=== PATIENT | male | born 1930 | race Caucasian/White ===

== ENCOUNTER → 2017-02-27 | Outpatient (CLI) | payer OTHER | END | disposition home or self-care (01) | LOC: NUC 09:55 | DX: M47.897 Other spondylosis, lumbosacral region (principal); M17.12 Unilateral primary osteoarthritis, left knee; M19.072 Primary osteoarthritis, left ankle and foot; M19.071 Primary osteoarthritis, right ankle and foot; R93.7 Abnormal findings on diagnostic imaging of other parts of musculoskeletal system; Z79.899 Other long term (current) drug therapy; R97.21 Rising PSA following treatment for malignant neoplasm of prostate | CPT/HCPCS: 78306; A9503 ==

== ENCOUNTER → 2017-06-27 | Outpatient (CLI) | payer OTHER | END | disposition home or self-care (01) | LOC: NUC 10:44 | DX: R93.7 Abnormal findings on diagnostic imaging of other parts of musculoskeletal system (principal); R93.421 Abnormal radiologic findings on diagnostic imaging of right kidney | CPT/HCPCS: 78306; A9503 ==

== ENCOUNTER → 2017-08-12 | Outpatient (CLI) | payer MEDICARE, OTHER | END | disposition home or self-care (01) | LOC: CDC 14:16 | DX: Z01.810 Encounter for preprocedural cardiovascular examination (principal); N13.30 Unspecified hydronephrosis; I44.0 Atrioventricular block, first degree | CPT/HCPCS: 93000 ==

== ENCOUNTER 2017-09-05 19:43 | Inpatient (IN) | payer OTHER ==
[~2017-09-05] VITALS: Ht 172.7 cm; Wt 113.9 kg
[2017-09-05 20:20] LABS: HEMATOCRIT 29.6 % (38.0-50.0); MCHC 32.4 G/DL (30.0-36.0); MCV 92.5 FL (86-99); MEAN PLAT.VOLUME 11.1 uM^3 (9.0-12.4); PLATELET COUNT 148 K/uL (156-360); RBC DIS.WIDTH-SD 47.7 % (39-53); WHITE BLOOD COUNT 9.4 K/uL (4.1-10.2)
[2017-09-05 20:30] LABS: CHLORIDE 109 mEq/L (99-109); POTASSIUM 4.3 mEq/L (3.7-5.4); SODIUM 140 mEq/L (136-147)
[2017-09-05 20:31] LABS: GLUCOSE 179 mg/dL (70-99)
[2017-09-05 20:33] LABS: ANION GAP 11 MEQ/L (2-14)
[2017-09-05 20:35] LABS: GFR ESTIMATE (CALCULATED) 36 mL/min/
[2017-09-05 20:36] LABS: UREA NITROGEN (BUN) 35 mg/dL (9-23)
[2017-09-05 20:43] LABS: TROP-I INTERPRETATION NEGATIVE; TROPONIN-I 0.03 ng/mL (0.0-0.30)
[2017-09-06] MEDS ORDERED: FLOMAX0.4 MG PO (00:37)
[2017-09-06] MEDS ORDERED: ATORVASTATIN CA10 MG PO (00:38)
[2017-09-06] MEDS ORDERED: NORVASC5 MG PO (00:38)
[2017-09-06] MEDS ORDERED: CRANBERRY500 M2 PO (00:38)
[2017-09-06] MEDS ORDERED: BENAZEPRIL HCL20 MG PO (00:38)
[2017-09-06] MEDS ORDERED: METOPROLOL SUCC50 MG PO (00:38)
[2017-09-06] MEDS ORDERED: LITE COAT ASPI325 M1 PO (00:39)
[2017-09-06] MEDS ORDERED: PROBIOTIC1 EAC1 PO (00:39)
[2017-09-06] MEDS ORDERED: A-CARO-2525000 UNIT PO (00:39)
[2017-09-06] MEDS ORDERED: CO Q-10200 MG PO (00:39)
[2017-09-06] MEDS ORDERED: PROAIR HFA8.5 GM IH (00:39)
[2017-09-06] MEDS ORDERED: ADVAIR 500/501 DISK IH (00:39)
[2017-09-06] MEDS ORDERED: CALCITRIOL0.25 MCG PO (00:39)
[2017-09-06] MEDS ORDERED: GLUCOSAMINE &1 EACH PO (00:40)
[2017-09-06] MEDS ORDERED: SALMON OIL 1,01 EACH PO ×2 (00:40)
[2017-09-06] MEDS ORDERED: GLUCOSAMINE-CH1 EA14 PO (00:40)
[2017-09-06] MEDS ORDERED: FIBER0.4 GM PO (00:40)
[2017-09-06] MEDS ORDERED: SUPER MULTIVIT1 EACH PO (00:40)
[2017-09-06] MEDS ORDERED: VITAMIN B-121000 MC1 PO (00:41)
[2017-09-06] MEDS ORDERED: VITAMIN C1000 MG PO (00:41)
[2017-09-06] MEDS ORDERED: VITAMIN D31000 UNIT PO (00:41)
[2017-09-06] MEDS ORDERED: ALPHA LIPOIC A100 MG PO (00:41)
[2017-09-06] MEDS ORDERED: LYCOPENE10 MG PO (00:41)
[2017-09-06] MEDS ORDERED: CALCIUM 500 MG1 EACH PO ×2 (00:42)
[2017-09-06 04:00] VITALS: BP 148/67
[2017-09-06 05:37] LABS: TROP-I INTERPRETATION NEGATIVE; TROPONIN-I 0.02 ng/mL (0.0-0.30)
[2017-09-06 07:27] VITALS: BP 103/57
[2017-09-06 08:40] LABS: ADD MIUA? YES; BILIRUBIN NEGATIVE; BLOOD LARGE; COLOR YELLOW ((YELLOW)); GLUCOSE (STRIP) NEGATIVE; KETONES NEGATIVE; LEUKOCYTES SMALL; NITRITE NEGATIVE; PROTEIN (STRIP) NEGATIVE; UROBILINOGEN 0.2 MG/DL (0.2-1.0)
[2017-09-06 08:52] LABS: BACTERIA 1+ /HPF; EPITHELIAL CELLS RARE /HPF; MUCUS TRACE /LPF; RED BLOOD CELLS TNTC /HPF (0-5); UCUL ADDED? YES; WHITE BLOOD CELLS 20-30 /HPF (0-5)
[2017-09-06 10:59] VITALS: BP 99/49
[2017-09-06 13:36] LABS: TROP-I INTERPRETATION NEGATIVE; TROPONIN-I 0.02 ng/mL (0.0-0.30)
[2017-09-06 16:00] VITALS: BP 122/66
[2017-09-06 18:55] VITALS: BP 112/57
[2017-09-06 23:06] VITALS: BP 155/73
[2017-09-07 03:14] VITALS: BP 116/62
[2017-09-07 05:27] LABS: HEMATOCRIT 28.8 % (38.0-50.0); MCH 29.6 PG (29.0-34.0); MCHC 31.9 G/DL (30.0-36.0); MCV 92.6 FL (86-99); MEAN PLAT.VOLUME 11.1 uM^3 (9.0-12.4); PLATELET COUNT 155 K/uL (156-360); RBC DIS.WIDTH-CV 14.1 % (11.8-14.6); RBC DIS.WIDTH-SD 48.2 % (39-53); RED BLOOD COUNT 3.11 M/uL (4.00-5.50); WHITE BLOOD COUNT 8.3 K/uL (4.1-10.2)
[2017-09-07 05:53] LABS: ANION GAP 10 MEQ/L (2-14); CHLORIDE 107 MEQ/L (99-109); GFR ESTIMATE (CALCULATED) 36 mL/min/; GLUCOSE 136 mg/dL (70-99); POTASSIUM 4.2 MEQ/L (3.7-5.4); SAMPLE HEMOLYSIS CHECK 0; SAMPLE ICTERIC CHECK 0; SAMPLE LIPEMIA CHECK 0; SODIUM 140 MEQ/L (136-147); UREA NITROGEN (BUN) 33 mg/dL (9-23)
[2017-09-07 09:00] VITALS: BP 110/55
[2017-09-07 12:00] VITALS: BP 133/66
[2017-09-07 17:00] VITALS: BP 146/61
[2017-09-07 19:08] VITALS: BP 149/66
[2017-09-07 23:23] VITALS: BP 118/58
[2017-09-08 04:26] VITALS: BP 134/69
[2017-09-08 05:53] LABS: BASOPHIL COUNT 0.1 K/uL (0-0.1); EOSINOPHIL (%) 5.6 % (0-5); EOSINOPHIL COUNT 0.4 K/uL (0-0.3); HEMATOCRIT 28.2 % (38.0-50.0); IMMATURE GRANULOCYTE (%) 0.3 % (0.0-0.7); INSTRUMENT ABS NEUTROPHIL CT 4.5 K/uL; LYMPHOCYTE COUNT 1.8 K/uL (1.0-2.8); MCH 29.9 PG (29.0-34.0); MCHC 32.6 G/DL (30.0-36.0); MCV 91.6 FL (86-99); MEAN PLAT.VOLUME 11.3 uM^3 (9.0-12.4); MONOCYTE (%) 8.2 % (3-12); MONOCYTE COUNT 0.6 K/uL (0-0.8); NEUTROPHIL (%) 61.1 % (45-76); NEUTROPHIL COUNT 4.5 K/uL (1.8-6.4); PLATELET COUNT 160 K/uL (156-360); RBC DIS.WIDTH-SD 46.9 % (39-53); RED BLOOD COUNT 3.08 M/uL (4.00-5.50); WHITE BLOOD COUNT 7.3 K/uL (4.1-10.2)
[2017-09-08 07:32] LABS: ANION GAP ND MEQ/L (2-14); CHLORIDE 106 MEQ/L (99-109); GLUCOSE 132 mg/dL (70-99); SAMPLE HEMOLYSIS CHECK 0; SAMPLE ICTERIC CHECK 0; SAMPLE LIPEMIA CHECK 0; SODIUM 141 MEQ/L (136-147); UREA NITROGEN (BUN) 36 mg/dL (9-23)
[2017-09-08 07:38] VITALS: BP 146/63
[2017-09-08 07:58] LABS: GFR ESTIMATE (CALCULATED) 36 mL/min/
[2017-09-08 12:19] VITALS: BP 134/65
[2017-09-08 12:37] LABS: ADD MIUA? YES; BILIRUBIN NEGATIVE; BLOOD LARGE; COLOR YELLOW ((YELLOW)); GLUCOSE (STRIP) NEGATIVE; KETONES NEGATIVE; LEUKOCYTES TRACE; NITRITE NEGATIVE; PROTEIN (STRIP) NEGATIVE; SPECIFIC GRAVITY 1.006 (1.000-1.030); UROBILINOGEN 0.2 MG/DL (0.2-1.0)
[2017-09-08 13:15] LABS: BACTERIA RARE /HPF; EPITHELIAL CELLS RARE /HPF; HYALINE CASTS 0-5 /LPF; MUCUS TRACE /LPF; RED BLOOD CELLS TNTC /HPF (0-5); UCUL ADDED? YES
[2017-09-08 16:35] VITALS: BP 163/73
[2017-09-08 19:30] VITALS: BP 142/63
[2017-09-08 23:11] VITALS: BP 148/67
[2017-09-09 03:57] VITALS: BP 115/62
[2017-09-09 08:11] VITALS: BP 142/64
[2017-09-09 11:41] VITALS: BP 139/64
[2017-09-09 12:21] LABS: ANION GAP 11 MEQ/L (2-14); CHLORIDE 102 MEQ/L (99-109); GFR ESTIMATE (CALCULATED) 41 mL/min/; GLUCOSE 148 mg/dL (70-99); POTASSIUM 3.8 MEQ/L (3.7-5.4); SAMPLE HEMOLYSIS CHECK 0; SAMPLE ICTERIC CHECK 0; SAMPLE LIPEMIA CHECK 0; SODIUM 141 MEQ/L (136-147); UREA NITROGEN (BUN) 36 mg/dL (9-23)
[2017-09-09 15:14] VITALS: BP 142/70
[2017-09-09 19:39] VITALS: BP 140/60
[2017-09-09 23:52] VITALS: BP 110/58
[2017-09-10 03:27] VITALS: BP 139/66
[2017-09-10 07:00] LABS: ANION GAP 10 MEQ/L (2-14); CHLORIDE 103 MEQ/L (99-109); GFR ESTIMATE (CALCULATED) 41 mL/min/; GLUCOSE 138 mg/dL (70-99); POTASSIUM 3.8 MEQ/L (3.7-5.4); SAMPLE HEMOLYSIS CHECK 0; SAMPLE ICTERIC CHECK 0; SAMPLE LIPEMIA CHECK 0; SODIUM 141 MEQ/L (136-147); UREA NITROGEN (BUN) 31 mg/dL (9-23)
[2017-09-10 07:13] VITALS: BP 133/70
[2017-09-10 08:06] LABS: HEMATOCRIT 28.5 % (38.0-50.0); MCV 90.8 FL (86-99)
[2017-09-10 10:25] LABS: C-REACTIVE PROTEIN 28.7 MG/L (0-10)
[2017-09-10 10:53] LABS: ERTH.SED.RATE 28 MM/HR (0-20)
[2017-09-10] MEDS ORDERED: XARELTO15 MG PO (13:46)
[2017-09-10] MEDS ORDERED: FUROSEMIDE40 MG PO (13:46)
[2017-09-10 15:11] VITALS: BP 150/67
== END 2017-09-10 16:33 | disposition home health service (06) | DRG 308 ==
LOC: EME 19:43 → 4EAST 09-06 00:16 → EDOF 09-06 00:16 → 5SOUTH 09-06 00:16 → ENRESERV 09-06 00:18 → 4EAST 09-06 03:55 → ENRESERV 09-09 12:46 → 5SOUTH 09-09 14:55
PROVIDERS: Hospitalist; Internal Medicine Cardiovascular Disease; Nurse Practitioner Family
DX: I48.1 Persistent atrial fibrillation (principal); I50.33 Acute on chronic diastolic (congestive) heart failure; I13.0 Hypertensive heart and chronic kidney disease with heart failure and stage 1 through stage 4 chronic kidney disease, or unspecified chronic kidney disease; N39.0 Urinary tract infection, site not specified; C79.9 Secondary malignant neoplasm of unspecified site; Z68.41 Body mass index [BMI] 40.0-44.9, adult; E66.01 Morbid (severe) obesity due to excess calories; N18.3 Chronic kidney disease, stage 3 (moderate); I49.5 Sick sinus syndrome; C61 Malignant neoplasm of prostate; D63.1 Anemia in chronic kidney disease; E11.22 Type 2 diabetes mellitus with diabetic chronic kidney disease; E78.5 Hyperlipidemia, unspecified; J44.9 Chronic obstructive pulmonary disease, unspecified; M10.9 Gout, unspecified; R31.29 Other microscopic hematuria; N13.5 Crossing vessel and stricture of ureter without hydronephrosis; I87.8 Other specified disorders of veins; M70.41 Prepatellar bursitis, right knee; I36.1 Nonrheumatic tricuspid (valve) insufficiency; I34.0 Nonrheumatic mitral (valve) insufficiency; I35.0 Nonrheumatic aortic (valve) stenosis; Z79.01 Long term (current) use of anticoagulants
CPT/HCPCS: 71010; 73560; 80048; 81003; 83880; 84439; 84443; 84484; 85014; 85018; 85025; 85027; 85651; 86140; 87086; 93005; 93306; 93970; 94640; 94640 76; 94799; 99202; 99281; 99285; J0696; J1650; J1940; J7050

== ENCOUNTER → 2017-12-31 | Outpatient (CLI) | payer OTHER ==
[~2017-12-31] MED LIST: A-CARO-2525000 UNIT PO; ADVAIR 500/501 DISK IH; ALPHA LIPOIC A100 MG PO; ATORVASTATIN CA10 MG PO; BENAZEPRIL HCL20 MG PO; CALCITRIOL0.25 MCG PO; CALCIUM 500 MG1 EACH PO; CO Q-10200 MG PO; CRANBERRY500 M2 PO; FIBER0.4 GM PO; FLOMAX0.4 MG PO; FUROSEMIDE40 MG PO; GLUCOSAMINE &1 EACH PO; GLUCOSAMINE-CH1 EA14 PO; LITE COAT ASPI325 M1 PO; LYCOPENE10 MG PO; METOPROLOL SUCC50 MG PO; NORVASC5 MG PO; PROAIR HFA8.5 GM IH; PROBIOTIC1 EAC1 PO; SALMON OIL 1,01 EACH PO; SUPER MULTIVIT1 EACH PO; VITAMIN B-121000 MC1 PO; VITAMIN C1000 MG PO; VITAMIN D31000 UNIT PO; XARELTO15 MG PO
== END | disposition home or self-care (01) ==
LOC: NUC 10:00
DX: N13.30 Unspecified hydronephrosis (principal); M17.12 Unilateral primary osteoarthritis, left knee; M19.072 Primary osteoarthritis, left ankle and foot; M19.071 Primary osteoarthritis, right ankle and foot; R97.20 Elevated prostate specific antigen [PSA]
CPT/HCPCS: 78306; A9503

== ENCOUNTER 2018-04-12 14:32 | Observation (INO) | payer OTHER ==
[~2018-04-12] VITALS: Ht 172.7 cm; Wt 112.1 kg
[~2018-04-12 14:32] MED LIST changes: +BENAZEPRIL HCL10 MG PO; -BENAZEPRIL HCL20 MG PO
[2018-04-12 16:10] LABS: HEMATOCRIT 29.4 % (38.0-50.0); HEMOGLOBIN 10.2 G/DL (12.5-16.6); MCH 30.3 PG (29.0-34.0); MCHC 34.7 G/DL (30.0-36.0); MCV 87.2 FL (86-99); PLATELET COUNT 148 K/uL (156-360); RBC DIS.WIDTH-SD 53.7 % (39-53); RED BLOOD COUNT 3.37 M/uL (4.00-5.50)
[2018-04-12 16:18] LABS: CHLORIDE 96 mEq/L (99-109); POTASSIUM 3.4 mEq/L (3.7-5.4); SODIUM 134 mEq/L (136-147)
[2018-04-12 16:20] LABS: GLUCOSE 105 mg/dL (70-99)
[2018-04-12 16:24] LABS: CREATININE 2.6 mg/dL (0.6-1.3); GFR ESTIMATE (CALCULATED) 25 mL/min/ (58.99-99999)
[2018-04-12 16:25] LABS: UREA NITROGEN (BUN) 51 mg/dL (9-23)
[2018-04-12 16:32] LABS: TROP-I INTERPRETATION NEGATIVE; TROPONIN-I 0.03 ng/mL (0.0-0.30)
[2018-04-12] MEDS ORDERED: LASIX40 MG PO (18:29)
[2018-04-12] MEDS ORDERED: METOLAZONE5 MG PO (18:41)
[2018-04-12] MEDS ORDERED: MONTELUKAST SOD10 MG PO (18:42)
[2018-04-12] MEDS ORDERED: PREDNISONE5 MG PO (18:43)
[2018-04-12] MEDS ORDERED: ZYTIGA250 MG PO (18:44)
[2018-04-12] MEDS ORDERED: POTASSIUM CHLO20 ME2 PO (18:45)
[2018-04-12] MEDS ORDERED: [UNRECOGNIZED DRUG - OTHER] IM (18:48)
[2018-04-12] MEDS ORDERED: TRELSTAR22.5 MG/2 IM (18:53)
[2018-04-12] MEDS ORDERED: XARELTO15 MG PO (18:55)
[2018-04-12 20:30] VITALS: BP 91/51
[2018-04-12 22:00] LABS: TROP-I INTERPRETATION NEGATIVE; TROPONIN-I 0.04 ng/mL (0.0-0.30)
[2018-04-12 23:40] VITALS: BP 101/59
[2018-04-13 03:30] VITALS: BP 101/56
[2018-04-13 06:38] LABS: HEMATOCRIT 27.6 % (38.0-50.0); HEMOGLOBIN 9.2 G/DL (12.5-16.6); MCHC 33.3 G/DL (30.0-36.0); MCV 87.1 FL (86-99); PLATELET COUNT 136 K/uL (156-360); RBC DIS.WIDTH-CV 16.6 % (11.8-14.6); RBC DIS.WIDTH-SD 53.1 % (39-53); RED BLOOD COUNT 3.17 M/uL (4.00-5.50); WHITE BLOOD COUNT 4.3 K/uL (4.1-10.2)
[2018-04-13 06:58] LABS: TROP-I INTERPRETATION NEGATIVE; TROPONIN-I 0.04 ng/mL (0.0-0.30)
[2018-04-13 07:00] LABS: CHLORIDE 102 MEQ/L (99-109); CREATININE 2.3 MG/DL (0.6-1.3); GFR ESTIMATE (CALCULATED) 29 mL/min/ (58.99-99999); GLUCOSE 120 mg/dL (70-99); POTASSIUM 3.2 MEQ/L (3.7-5.4); SODIUM 137 MEQ/L (136-147); UREA NITROGEN (BUN) 54 mg/dL (9-23)
[2018-04-13 07:25] VITALS: BP 108/57
[2018-04-13] MEDS ORDERED: CEPHALEXIN500 MG PO (11:46)
[2018-04-13] MEDS ORDERED: INDOMETHACIN25 MG PO (11:47)
[2018-04-13 12:14] VITALS: BP 98/55
== END 2018-04-13 12:41 | disposition home or self-care (01) ==
LOC: EME 14:32 → EDOF 18:35 → ENRESERV 18:38 → 4SOUTH 20:08
PROVIDERS: Emergency Medicine; Hospitalist; Nurse Practitioner Adult Health
DX: N17.9 Acute kidney failure, unspecified (principal); L03.116 Cellulitis of left lower limb; M79.605 Pain in left leg; I48.91 Unspecified atrial fibrillation; I13.0 Hypertensive heart and chronic kidney disease with heart failure and stage 1 through stage 4 chronic kidney disease, or unspecified chronic kidney disease; I50.9 Heart failure, unspecified; N18.3 Chronic kidney disease, stage 3 (moderate); E87.6 Hypokalemia; E11.22 Type 2 diabetes mellitus with diabetic chronic kidney disease; Z79.82 Long term (current) use of aspirin; Z85.46 Personal history of malignant neoplasm of prostate
CPT/HCPCS: 71046; 80048; 83880; 84484; 85027; 93005; 93971; 94640; 94660; 99281; 99285; G0378; J7030; J7512

== ENCOUNTER 2018-04-26 12:18 | Inpatient (IN) | payer OTHER ==
[~2018-04-26] VITALS: Ht 172.7 cm; Wt 106.4 kg
[~2018-04-26 12:18] MED LIST changes: +CEPHALEXIN500 MG PO; +INDOMETHACIN25 MG PO; +LASIX40 MG PO; +METOLAZONE5 MG PO; +MONTELUKAST SOD10 MG PO; +POTASSIUM CHLO20 ME2 PO; +PREDNISONE5 MG PO; +TRELSTAR22.5 MG/2 IM; +ZYTIGA250 MG PO; +[UNRECOGNIZED DRUG - OTHER] IM
[2018-04-26 13:08] LABS: HEMATOCRIT 29.8 % (38.0-50.0); HEMOGLOBIN 10.3 G/DL (12.5-16.6); MCH 30.7 PG (29.0-34.0); MCHC 34.6 G/DL (30.0-36.0); PLATELET COUNT 194 K/uL (156-360); RBC DIS.WIDTH-CV 17.2 % (11.8-14.6); RBC DIS.WIDTH-SD 55.3 % (39-53); RED BLOOD COUNT 3.35 M/uL (4.00-5.50); WHITE BLOOD COUNT 13.9 K/uL (4.1-10.2)
[2018-04-26 13:28] LABS: CHLORIDE 101 MEQ/L (99-109); GFR ESTIMATE (CALCULATED) 34 mL/min/ (58.99-99999); GLUCOSE 162 mg/dL (70-99); SODIUM 135 MEQ/L (136-147); UREA NITROGEN (BUN) 42 mg/dL (9-23)
[2018-04-26 14:09] LABS: MAGNESIUM 1.9 mg/dl (1.3-2.7)
[2018-04-26 14:20] LABS: TROP-I INTERPRETATION NEGATIVE; TROPONIN-I 0.06 ng/mL (0.0-0.30)
[2018-04-26] MEDS ORDERED: SPIRIVA1 INHALATI IH (15:24)
[2018-04-26 16:25] VITALS: BP 105/51
[2018-04-26 16:46] LABS: APPEARANCE SL.HAZY ((CLEAR)); BILIRUBIN NEGATIVE; BLOOD MODERATE; COLOR YELLOW ((YELLOW)); GLUCOSE (STRIP) NEGATIVE; KETONES NEGATIVE; LEUKOCYTES NEGATIVE; NITRITE NEGATIVE; PROTEIN (STRIP) NEGATIVE; UROBILINOGEN 0.2 MG/DL (0.2-1.0)
[2018-04-26 17:06] LABS: BACTERIA NONE SEEN /HPF; EPITHELIAL CELLS NONE SEEN /HPF; MUCUS NONE SEEN /LPF; UCUL ADDED? NO; WHITE BLOOD CELLS 0-5 /HPF (0-5)
[2018-04-26 19:19] VITALS: BP 114/59
[2018-04-26 22:35] VITALS: BP 115/62
[2018-04-27 02:30] VITALS: BP 143/69
[2018-04-27 06:58] LABS: BASOPHIL (%) 0.5 % (0-1); BASOPHIL COUNT 0.1 K/uL (0-0.1); EOSINOPHIL (%) 0.2 % (0-5); HEMATOCRIT 28.8 % (38.0-50.0); HEMOGLOBIN 9.5 G/DL (12.5-16.6); IMMATURE GRANULOCYTE (%) 0.3 % (0.0-0.7); LYMPHOCYTE (%) 6.8 % (15-42); LYMPHOCYTE COUNT 0.8 K/uL (1.0-2.8); MCH 29.7 PG (29.0-34.0); MONOCYTE (%) 4.3 % (3-12); MONOCYTE COUNT 0.5 K/uL (0-0.8); NEUTROPHIL (%) 87.9 % (45-76); NEUTROPHIL COUNT 10.2 K/uL (1.8-6.4); PLATELET COUNT 169 K/uL (156-360); RBC DIS.WIDTH-CV 17.2 % (11.8-14.6); RBC DIS.WIDTH-SD 55.9 % (39-53); WHITE BLOOD COUNT 11.6 K/uL (4.1-10.2)
[2018-04-27 07:20] LABS: CHLORIDE 101 MEQ/L (99-109); CREATININE 2.1 MG/DL (0.6-1.3); GFR ESTIMATE (CALCULATED) 32 mL/min/ (58.99-99999); GLUCOSE 155 mg/dL (70-99); POTASSIUM 3.2 MEQ/L (3.7-5.4); SODIUM 135 MEQ/L (136-147); UREA NITROGEN (BUN) 39 mg/dL (9-23)
[2018-04-27 07:30] VITALS: BP 116/60
[2018-04-27 12:04] VITALS: BP 122/58
[2018-04-27 17:31] VITALS: BP 110/52
[2018-04-27 19:40] VITALS: BP 98/52
[2018-04-27 23:07] VITALS: BP 101/53
[2018-04-28 07:10] LABS: BASOPHIL (%) 0.7 % (0-1); BASOPHIL COUNT 0.1 K/uL (0-0.1); EOSINOPHIL (%) 1.8 % (0-5); EOSINOPHIL COUNT 0.1 K/uL (0-0.3); HEMATOCRIT 29.1 % (38.0-50.0); HEMOGLOBIN 9.8 G/DL (12.5-16.6); IMMATURE GRANULOCYTE (%) 0.3 % (0.0-0.7); LYMPHOCYTE (%) 8.6 % (15-42); LYMPHOCYTE COUNT 0.6 K/uL (1.0-2.8); MCH 29.4 PG (29.0-34.0); MCHC 33.7 G/DL (30.0-36.0); MCV 87.4 FL (86-99); MONOCYTE (%) 6.1 % (3-12); MONOCYTE COUNT 0.4 K/uL (0-0.8); NEUTROPHIL (%) 82.5 % (45-76); NEUTROPHIL COUNT 5.6 K/uL (1.8-6.4); PLATELET COUNT 167 K/uL (156-360); RBC DIS.WIDTH-CV 17.1 % (11.8-14.6); RBC DIS.WIDTH-SD 54.4 % (39-53); RED BLOOD COUNT 3.33 M/uL (4.00-5.50); WHITE BLOOD COUNT 6.8 K/uL (4.1-10.2)
[2018-04-28 07:28] VITALS: BP 120/65
[2018-04-28 07:31] LABS: CHLORIDE 99 MEQ/L (99-109); CREATININE 2.3 MG/DL (0.6-1.3); GFR ESTIMATE (CALCULATED) 29 mL/min/ (58.99-99999); GLUCOSE 123 mg/dL (70-99); POTASSIUM 3.2 MEQ/L (3.7-5.4); SODIUM 137 MEQ/L (136-147); UREA NITROGEN (BUN) 40 mg/dL (9-23)
[2018-04-28 16:21] VITALS: BP 89/54
[2018-04-28 16:44] VITALS: BP 104/59
[2018-04-29 00:50] VITALS: BP 98/58
[2018-04-29 06:21] LABS: BASOPHIL (%) 0.5 % (0-1); EOSINOPHIL (%) 3.4 % (0-5); EOSINOPHIL COUNT 0.2 K/uL (0-0.3); HEMATOCRIT 25.1 % (38.0-50.0); HEMOGLOBIN 8.5 G/DL (12.5-16.6); IMMATURE GRANULOCYTE (%) 0.5 % (0.0-0.7); LYMPHOCYTE (%) 15.4 % (15-42); LYMPHOCYTE COUNT 0.9 K/uL (1.0-2.8); MCH 29.9 PG (29.0-34.0); MCHC 33.9 G/DL (30.0-36.0); MCV 88.4 FL (86-99); MONOCYTE COUNT 0.5 K/uL (0-0.8); NEUTROPHIL (%) 71.2 % (45-76); PLATELET COUNT 157 K/uL (156-360); RBC DIS.WIDTH-CV 17.1 % (11.8-14.6); RED BLOOD COUNT 2.84 M/uL (4.00-5.50); WHITE BLOOD COUNT 5.6 K/uL (4.1-10.2)
[2018-04-29 06:50] LABS: CHLORIDE 98 MEQ/L (99-109); GFR ESTIMATE (CALCULATED) 20 mL/min/ (58.99-99999); GLUCOSE 141 mg/dL (70-99); POTASSIUM 3.3 MEQ/L (3.7-5.4); SODIUM 134 MEQ/L (136-147); UREA NITROGEN (BUN) 56 mg/dL (9-23)
[2018-04-29 06:51] LABS: CREATININE 3.1 MG/DL (0.6-1.3)
[2018-04-29 07:22] VITALS: BP 108/59
[2018-04-29 10:48] VITALS: BP 106/51
[2018-04-29 15:52] VITALS: BP 94/50
[2018-04-29 19:59] VITALS: BP 119/56
[2018-04-29 23:36] VITALS: BP 117/60
[2018-04-30 05:48] LABS: HEMATOCRIT 25.8 % (38.0-50.0); HEMOGLOBIN 8.7 G/DL (12.5-16.6); MCH 29.6 PG (29.0-34.0); MCHC 33.7 G/DL (30.0-36.0); MCV 87.8 FL (86-99); PLATELET COUNT 179 K/uL (156-360); RBC DIS.WIDTH-SD 54.2 % (39-53); RED BLOOD COUNT 2.94 M/uL (4.00-5.50)
[2018-04-30 06:19] LABS: CHLORIDE 103 MEQ/L (99-109); GFR ESTIMATE (CALCULATED) 26 mL/min/ (58.99-99999); GLUCOSE 165 mg/dL (70-99); POTASSIUM 3.7 MEQ/L (3.7-5.4); SODIUM 137 MEQ/L (136-147); UREA NITROGEN (BUN) 55 mg/dL (9-23)
[2018-04-30 06:21] LABS: CREATININE 2.5 MG/DL (0.6-1.3)
[2018-04-30 06:50] VITALS: BP 125/60
[2018-04-30] MEDS ORDERED: CEFTIN500 MG PO ×2 (10:23→12:12)
== END 2018-04-30 12:42 | disposition home or self-care (01) | DRG 871 ==
LOC: EME 12:18 → EDOF 14:01 → 5EAST 14:01 → ENRESERV 14:03 → 5EAST 16:01 → ENPENDDIS 04-30 → 5EAST 04-30 12:42
PROVIDERS: Emergency Medicine; Family Medicine; Internal Medicine; Physician Assistant
PROC: 5A09357 Assistance with Respiratory Ventilation, Less than 24 Consecutive Hours, Continuous Positive Airway Pressure (ICD-10-PCS; principal; 2018-04-26)
DX: A41.9 Sepsis, unspecified organism (principal); J18.9 Pneumonia, unspecified organism; J44.0 Chronic obstructive pulmonary disease with (acute) lower respiratory infection; N17.9 Acute kidney failure, unspecified; E87.6 Hypokalemia; E86.0 Dehydration; I48.0 Paroxysmal atrial fibrillation; I13.0 Hypertensive heart and chronic kidney disease with heart failure and stage 1 through stage 4 chronic kidney disease, or unspecified chronic kidney disease; I50.9 Heart failure, unspecified; N18.3 Chronic kidney disease, stage 3 (moderate); E11.22 Type 2 diabetes mellitus with diabetic chronic kidney disease; R09.02 Hypoxemia; C61 Malignant neoplasm of prostate; N40.0 Benign prostatic hyperplasia without lower urinary tract symptoms; D64.9 Anemia, unspecified; E78.5 Hyperlipidemia, unspecified; E66.9 Obesity, unspecified; Z68.35 Body mass index [BMI] 35.0-35.9, adult
CPT/HCPCS: 71046; 80048; 81003; 82948; 83605; 83735; 83880; 84484; 85025; 85027; 87040; 87449; 93005; 94640; 94640 76; 94664; 94760; 94799; 99202; 99281; 99285; J0295; J0456; J0696; J1815; J7030; J7050; J7512